=== PATIENT | female | born 1990 | race African-American/Black ===

== ENCOUNTER 2017-10-25 14:42 | Observation (INO) ==
[2017-10-25] MEDS ORDERED: MORPHINE 2 MG/1 ML SYRINGE IM STA (15:41)
[2017-10-25] MEDS ORDERED: SODIUM CHLORIDE 0.9% 1,000 ML IV STA (15:42)
[2017-10-25] MEDS ORDERED: MORPHINE 2 MG/1 ML SYRINGE ONE (15:45)
[2017-10-25 15:50] LABS: Basophils # 0.1 10*3/uL (0.0-0.2); Basophils % 0.6 % (0.0-0.8); Eosinophils # 0.2 10*3/uL (0.0-0.87); Eosinophils % 1.4 % (0.00-10.9); Hematocrit 36.2 VOL% (35.7-47.0); Hemoglobin 11.2 GM/DL (12.0-16.0); Immature Granulocytes % 0.3 %; Immature Granulocytes Absolute 0.04 #; Lymphocytes % 52.8 % (21.3-54.2); Mean Corpuscular HGB Conc 30.9 GM/DL (32-36); Mean Corpuscular Hemoglobin 27 PG (27-34); Mean Corpuscular Volume 87.4 FL (87-102); Mean Platelet Volume 9.6 FL (9.6-12.0); Monocytes # 0.7 10*3/uL (0.11-0.8); Monocytes % 5.4 % (1.7-12.7); Neutrophils # 5.2 10*3/uL (1.4-7.4); Neutrophils % 39.5 % (38.7-73.9); Platelet Count 525 T/CUMM (130-400); Red Blood Count 4.14 MC/CUMM (3.8-5.5); Red Cell Distribution Width 16.2 % (9.3-17.3); White Blood Count 13.2 T/CUMM (4-12)
[2017-10-25 15:58] LABS: Apearance,Urine CLOUDY (Clear); Bilirubin,Urine Negative (Negative); Blood, Urine Negative (Negative); Glucose,Urine (UA) Negative (Negative); Ketones,Urine Negative (Negative); Mucus,Urine Few /LPF (Occasional); Nitrite,Urine Negative (Negative); Protein,Urine 30 MG/DL; RBC,Urine 7 /HPF (0-4); Squamous Epithelial Cell,Urine Occasional /HPF (0-10); Urine Color Yellow (Yellow); WBC,Urine 2 /HPF (0-6)
[2017-10-25 16:02] LABS: Albumin 3.1 G/DL (3.4-5.0); Bilirubin,Total 0.4 MG/DL (0.2-1.0); Calcium 8.5 MG/DL (8.5-10.1); Osmolality,Calculated 277.4 MOS/KG (273-304); Potassium 3.5 MMOL/L (3.5-5.1); Total Protein 7.5 G/DL (6.4-8.3)
[2017-10-25] MEDS ORDERED: diphenhydrAMINE 50 MG/1 ML VIAL IV STA (16:10)
[2017-10-25] MEDS ORDERED: methylPREDNISolone SOD SUC 125 MG/2 ML VIAL IV STA (16:10)
[2017-10-25] MEDS ORDERED: diphenhydrAMINE 50 MG/1 ML VIAL ONE (16:11)
[2017-10-25] MEDS ORDERED: methylPREDNISolone SOD SUC 125 MG/2 ML VIAL ONE (16:12)
[2017-10-25] MEDS ORDERED: ONDANSETRON 4 MG/2 ML VIAL IV PRN (17:31)
[2017-10-25] MEDS ORDERED: MORPHINE 2 MG/1 ML SYRINGE IV PRN (17:31)
[2017-10-25] MEDS ORDERED: ALBUTEROL 2.5 MG/3 ML NEB RESP TX PRN (17:36)
[2017-10-25] MEDS ORDERED: cefTRIAXone 1,000 MG in SODIUM CHLORIDE 0.9% 100 ML IV STA (17:54)
[2017-10-25] MEDS ORDERED: cefTRIAXone 1,000 MG VIAL ONE (17:58)
[2017-10-25] MEDS ORDERED: SODIUM CHLORIDE 0.9% 100 ML IV ONE (18:00)
[2017-10-25] MEDS: ALBUTEROL/IPRATROPIUM 3 ML NEB RESP TX SCH (19:02)
[2017-10-25] MEDS: AZITHROMYCIN INJ 500 MG in SODIUM CHLORIDE 0.9% 250 ML IV SCH (21:52)
[2017-10-25] MEDS: SODIUM CHLORIDE 0.9% 1,000 ML IV SCH (21:52)
[2017-10-26] MEDS: ALBUTEROL/IPRATROPIUM 3 ML NEB RESP TX SCH ×4 (01:15→19:24)
[2017-10-26] MEDS: methylPREDNISolone SOD SUC 40 MG/1 ML VIAL IV SCH ×2 (03:55→16:26)
[2017-10-26 06:32] LABS: Basophils % 0.2 % (0.0-0.8); Hematocrit 37.3 VOL% (35.7-47.0); Hemoglobin 11.7 GM/DL (12.0-16.0); Immature Granulocytes % 0.5 %; Immature Granulocytes Absolute 0.07 #; Lymphocytes # 1.7 10*3/uL (1.4-4.0); Mean Corpuscular HGB Conc 31.4 GM/DL (32-36); Mean Corpuscular Hemoglobin 27 PG (27-34); Mean Corpuscular Volume 85.7 FL (87-102); Mean Platelet Volume 9.6 FL (9.6-12.0); Monocytes # 0.2 10*3/uL (0.11-0.8); Monocytes % 1.1 % (1.7-12.7); Neutrophils # 11.3 10*3/uL (1.4-7.4); Neutrophils % 85.2 % (38.7-73.9); Platelet Count 532 T/CUMM (130-400); Red Blood Count 4.35 MC/CUMM (3.8-5.5); Red Cell Distribution Width 15.4 % (9.3-17.3); White Blood Count 13.3 T/CUMM (4-12)
[2017-10-26] MEDS: SODIUM CHLORIDE 0.9% 1,000 ML IV SCH ×3 (07:30→17:45)
[2017-10-26 07:50] LABS: Hypochromasia 1+; Lymphocytes 13 % (20-55); Microcytosis 1+; Segmented Neutrophils 86 % (50-85); Total Cells Counted 100
[2017-10-26 07:51] LABS: Platelet Estimate Increased
[2017-10-26] MEDS ORDERED: cefTRIAXone 1,000 MG in SYRINGE 1 EACH IV SCH (18:00)
[2017-10-26] MEDS: AZITHROMYCIN INJ 500 MG in SODIUM CHLORIDE 0.9% 250 ML IV SCH (22:05)
[2017-10-27] MEDS: ALBUTEROL/IPRATROPIUM 3 ML NEB RESP TX SCH ×2 (00:30→08:21)
[2017-10-27] MEDS: SODIUM CHLORIDE 0.9% 1,000 ML IV SCH ×2 (03:26→09:38)
[2017-10-27] MEDS: methylPREDNISolone SOD SUC 40 MG/1 ML VIAL IV SCH (03:26)
[2017-10-27 11:26] VITALS: BP 122/60
== END 2017-10-27 11:46 | disposition home or self-care (01) ==
LOC: N.ED 14:42 → N.EDINP 14:42 → N.5E 19:07
PROVIDERS: ADMIT Hospitalist; ATTEND Hospitalist

== ENCOUNTER 2019-08-12 06:39 | Inpatient (IN) ==
[2019-08-12] MEDS ORDERED: ONDANSETRON 4 MG/2 ML VIAL IV PRN ×2 (07:44→11:13)
[2019-08-12] MEDS ORDERED: CITRIC ACID/SODIUM CITRATE 30 ML UDCUP PO ONE (07:44)
[2019-08-12] MEDS ORDERED: FAMOTIDINE 20 MG/2 ML VIAL IV ONE (07:44)
[2019-08-12] MEDS ORDERED: ceFAZolin 3,000 MG in SYRINGE 1 EACH IV ONE (07:44)
[2019-08-12] MEDS ORDERED: LACTATED RINGERS 1,000 ML IV SCH ×2 (08:00→11:30)
[2019-08-12 08:06] LABS: Basophils % 0.4 % (0.0-0.8); Eosinophils # 0.1 10*3/uL (0.0-0.87); Eosinophils % 1.8 % (0.00-10.9); Hematocrit 39.8 VOL% (35.7-47.0); Hemoglobin 12.3 GM/DL (12.0-16.0); Immature Granulocytes % 0.3 %; Immature Granulocytes Absolute 0.02 #; Lymphocytes # 2.3 10*3/uL (1.4-4.0); Lymphocytes % 29.2 % (21.3-54.2); Mean Corpuscular HGB Conc 30.9 GM/DL (32-36); Mean Corpuscular Volume 81.9 FL (87-102); Mean Platelet Volume 10.6 FL (9.6-12.0); Monocytes % 5.9 % (1.7-12.7); Neutrophils % 62.4 % (38.7-73.9); Platelet Count 417 T/CUMM (130-400); Red Blood Count 4.86 MC/CUMM (3.8-5.5); Red Cell Distribution Width 17.8 % (9.3-17.3); White Blood Count 7.9 T/CUMM (4-12)
[2019-08-12] MEDS ORDERED: OXYTOCIN 10 UNIT/ML VIAL IM ONE (08:23)
[2019-08-12 08:35] LABS: Albumin 2.5 G/DL (3.4-5.0); Bilirubin,Total 0.5 MG/DL (0.2-1.0); Osmolality,Calculated 277.3 MOS/KG (273-304); Total Protein 7.7 G/DL (6.4-8.3)
[2019-08-12] MEDS ORDERED: OXYTOCIN/LR 20 UNIT/1,000 ML BAG IV ONE ×3 (08:43→13:49)
[2019-08-12] MEDS ORDERED: miSOPROStoL 200 MCG TABLET ONE (08:43)
[2019-08-12] MEDS ORDERED: METHYLERGONOVINE 0.2 MG/1 ML AMP ONE (08:43)
[2019-08-12] MEDS ORDERED: CARBOPROST TROMETHAMINE 250 MCG/ML AMP IM ONE (08:44)
[2019-08-12] MEDS ORDERED: OXYTOCIN/LR 30 UNIT/1,000 ML BAG IV ONE (08:45)
[2019-08-12] MEDS ORDERED: BUPIVACAINE 0.25% 50 ML VIAL ONE (10:11)
[2019-08-12] MEDS ORDERED: ROPIVACAINE 0.5% 30 ML VIAL ONE (10:12)
[2019-08-12 10:14] LABS: Cord Arterial Blood HCO3 21.5 MMOL/L
[2019-08-12 10:16] LABS: Cord Venous Blood HCO3 18.7 MMOL/L; Cord Venous Blood PCO2 40.2 MMHG; Cord Venous Blood PO2 31.5
[2019-08-12 10:36] LABS: Apearance,Urine CLEAR (Clear); Bilirubin,Urine Negative (Negative); Blood, Urine Negative (Negative); Glucose,Urine (UA) Negative (Negative); Ketones,Urine Negative (Negative); Mucus,Urine Occasional /LPF (Occasional); Nitrite,Urine Negative (Negative); Protein,Urine Negative; RBC,Urine 1 /HPF (0-4); Squamous Epithelial Cell,Urine Occasional /HPF (0-10); Urine Color Yellow (Yellow); Urine Specific Gravity 1.029 (1.001-1.035); Urine Urobilinogen < 2.0 EU/DL (0.2-1.0); WBC,Urine 1 /HPF (0-6)
[2019-08-12] MEDS ORDERED: BUPIVACAINE SPINAL 0.75% 2 ML AMP SPINAL ONE (10:47)
[2019-08-12] MEDS ORDERED: PHENYLEPHRINE 1 MG/10 ML SYRINGE IV ONE (10:47)
[2019-08-12] MEDS ORDERED: MORPHINE 10 MG/10 ML VIAL ONE (10:47)
[2019-08-12] MEDS ORDERED: MIDAZOLAM 2 MG/2 ML VIAL ONE (10:48)
[2019-08-12] MEDS ORDERED: RHO(D) IMMUNE GLOBULIN 300 MCG SYRINGE IM ONE (11:13)
[2019-08-12] MEDS ORDERED: SIMETHICONE CHEW 80 MG TABLET PO PRN (11:13)
[2019-08-12] MEDS ORDERED: ACETAMINOPHEN 325 MG TABLET PO PRN (11:13)
[2019-08-12] MEDS: ceFAZolin 1,000 MG in SYRINGE 1 EACH IV SCH ×2 (16:33→23:09)
[2019-08-12] MEDS ORDERED: diphenhydrAMINE 50 MG/1 ML VIAL ONE (16:56)
[2019-08-12] MEDS: diphenhydrAMINE 50 MG/1 ML VIAL IV PRN ×2 (16:58→23:31)
[2019-08-12 17:53] LABS: Basophils % 0.2 % (0.0-0.8); Hematocrit 37.6 VOL% (35.7-47.0); Hemoglobin 11.7 GM/DL (12.0-16.0); Immature Granulocytes % 0.5 %; Immature Granulocytes Absolute 0.07 #; Lymphocytes # 1.1 10*3/uL (1.4-4.0); Lymphocytes % 7.9 % (21.3-54.2); Mean Corpuscular HGB Conc 31.1 GM/DL (32-36); Mean Corpuscular Volume 82.1 FL (87-102); Mean Platelet Volume 10.3 FL (9.6-12.0); Monocytes % 2.9 % (1.7-12.7); Neutrophils % 88.5 % (38.7-73.9); Platelet Count 383 T/CUMM (130-400); Red Blood Count 4.58 MC/CUMM (3.8-5.5); Red Cell Distribution Width 17.5 % (9.3-17.3); White Blood Count 13.5 T/CUMM (4-12)
[2019-08-13] MEDS: DOCUSATE SODIUM 100 MG CAPSULE PO SCH ×3 (00:11→21:52)
[2019-08-13 06:16] LABS: Basophils % 0.4 % (0.0-0.8); Eosinophils % 0.3 % (0.00-10.9); Hematocrit 31.8 VOL% (35.7-47.0); Hemoglobin 9.9 GM/DL (12.0-16.0); Immature Granulocytes % 0.4 %; Immature Granulocytes Absolute 0.04 #; Lymphocytes # 2.5 10*3/uL (1.4-4.0); Lymphocytes % 23.9 % (21.3-54.2); Mean Corpuscular HGB Conc 31.1 GM/DL (32-36); Mean Corpuscular Volume 82.4 FL (87-102); Mean Platelet Volume 10.2 FL (9.6-12.0); Monocytes % 6.3 % (1.7-12.7); Neutrophils % 68.7 % (38.7-73.9); Platelet Count 308 T/CUMM (130-400); Red Blood Count 3.86 MC/CUMM (3.8-5.5); Red Cell Distribution Width 17.5 % (9.3-17.3); White Blood Count 10.4 T/CUMM (4-12)
[2019-08-13] MEDS: MULTIVITAMIN (PRENATAL) TABLET PO SCH (08:55)
[2019-08-13] MEDS ORDERED: diphenhydrAMINE CAP 25 MG CAPSULE PO PRN (12:56)
[2019-08-13] MEDS ORDERED: diphenhydrAMINE CAP 25 MG CAPSULE ONE (12:58)
[2019-08-13] MEDS: IBUPROFEN 800 MG TABLET PO PRN (16:17)
[2019-08-13] MEDS: MAGNESIUM HYDROXIDE SUSP 30 ML UDCUP PO PRN ×2 (17:30→21:51)
[2019-08-13] MEDS ORDERED: BISACODYL 10 MG SUPP RECTAL PRN (20:13)
[2019-08-14] MEDS: IBUPROFEN 800 MG TABLET PO PRN (05:00)
[2019-08-14] MEDS: DOCUSATE SODIUM 100 MG CAPSULE PO SCH (10:08)
[2019-08-14] MEDS: MULTIVITAMIN (PRENATAL) TABLET PO SCH (10:08)
[2019-08-14 12:19] VITALS: BP 143/77
[2019-08-14] MEDS ORDERED: MEASLES/MUMPS/RUBELLA VACCINE 0.5 ML VIAL SUBCUT ONE (13:19)
[2019-08-14] MEDS ORDERED: DIPH/TET/ACEL PERT BOOSTER VACCINE 0.5 ML VIAL IM ONE (13:20)
[2019-08-14] MEDS ORDERED: INFLUENZA VIRUS VACCINE 0.5 ML SYRINGE IM ONE (13:20)
== END 2019-08-14 15:00 | disposition home or self-care (01) | DRG 540 ==
LOC: N.LD 06:39 → N.OB 15:20
PROVIDERS: ADMIT Obstetrics & Gynecology; ATTEND Obstetrics & Gynecology
PROC: LDCSECT (ICD-10-PCS; 2019-08-12 08:15)

== ENCOUNTER 2021-01-27 03:38 | Inpatient (IN) ==
[2021-01-27 02:06] LABS: Bilirubin,Urine Negative (Negative); Blood, Urine Negative (Negative); Glucose,Urine (UA) Negative (Negative); Ketones,Urine Negative (Negative); Nitrite,Urine Negative (Negative); Protein,Urine Negative; RBC,Urine <1 /HPF (0-4); Urine Appearance CLEAR (Clear); Urine Color Colorless (Yellow); Urine Specific Gravity 1.003 (1.001-1.035); Urine Urobilinogen < 2.0 EU/DL (0.2-1.0)
[~2021-01-27 03:38] MED LIST: ALBUTEROL 1.25 MG/3 ML NEB RESP TX STA; CITRIC ACID/SODIUM CITRATE 30 ML UDCUP PO ONE; FAMOTIDINE 20 MG/2 ML VIAL IV ONE; ceFAZolin 3,000 MG in SYRINGE 1 EACH IV ONE
[2021-01-27] MEDS ORDERED: LACTATED RINGERS 1,000 ML IV SCH ×2 (04:00→09:30)
[2021-01-27 04:10] LABS: Basophils % 0.5 % (0.0-0.8); Eosinophils # 0.2 10*3/uL (0.0-0.87); Eosinophils % 3.3 % (0.00-10.9); Hematocrit 36.2 VOL% (35.7-47.0); Hemoglobin 11.6 GM/DL (12.0-16.0); Immature Granulocytes % 0.3 %; Immature Granulocytes Absolute 0.02 #; Lymphocytes # 2.6 10*3/uL (1.4-4.0); Lymphocytes % 35.8 % (21.3-54.2); Monocytes % 5.8 % (1.7-12.7); Neutrophils % 54.3 % (38.7-73.9); Platelet Count 361 T/CUMM (130-400); Red Blood Count 4.47 MC/CUMM (3.8-5.5); Red Cell Distribution Width 16.2 % (9.3-17.3); White Blood Count 7.4 T/CUMM (4-12)
[2021-01-27 04:28] LABS: Alanine Aminotransferase 14 U/L (13-56); Albumin 2.6 G/DL (3.4-5.0); Alkaline Phosphatase 148 U/L (45-117); Aspartate Amino Transferase 8 U/L (0-37); Bilirubin,Total < 0.39 MG/DL (0.2-1.0); Blood Urea Nitrogen 8 MG/DL (7-18); Calcium 8.8 MG/DL (8.5-10.1); Carbon Dioxide 21 MMOL/L (21-32); Estimated Glom Filtration Rate 170 ML/MIN; Glucose 80 MG/DL (74-106); Osmolality,Calculated 269.8 MOS/KG (273-304); Sodium 137 MMOL/L (136-145); Total Protein 7.6 G/DL (6.4-8.2)
[2021-01-27 04:29] LABS: Eosinophils 1 % (0-10); Lymphocytes 40 % (20-55); Platelet Estimate Normal; Segmented Neutrophils 52 % (50-85); Total Cells Counted 100
[2021-01-27 05:01] LABS: Barbiturates Screen,Urine Negative (Negative); Benzodiazepines Screen,Urine Negative (Negative); Cannabinoid Screen,Urine Negative (Negative); Opiate Screen,Urine Negative (Negative); Phencyclidine Screen,Urine Negative (Negative)
[2021-01-27] MEDS ORDERED: miSOPROStoL 200 MCG TABLET ONE (07:03)
[2021-01-27] MEDS ORDERED: TRANEXAMIC ACID 1,000 MG/10 ML VIAL ONE (07:03)
[2021-01-27] MEDS ORDERED: CARBOPROST TROMETHAMINE 250 MCG/ML AMP IM ONE (07:04)
[2021-01-27] MEDS ORDERED: OXYTOCIN/LR 20 UNIT/1,000 ML BAG IV ONE ×3 (07:04→09:20)
[2021-01-27] MEDS ORDERED: METHYLERGONOVINE 0.2 MG/1 ML AMP ONE (07:04)
[2021-01-27] MEDS ORDERED: SODIUM CHLORIDE 0.9% 0 ML IV ONE (07:05)
[2021-01-27] MEDS ORDERED: LACTATED RINGERS 1,000 ML IV ONE (07:31)
[2021-01-27] MEDS ORDERED: BUPIVACAINE SPINAL 0.75% 2 ML AMP SPINAL ONE (07:34)
[2021-01-27] MEDS ORDERED: ePHEDrine 50 MG/ML VIAL ONE (07:56)
[2021-01-27] MEDS ORDERED: PHENYLEPHRINE 1 MG/10 ML SYRINGE IV ONE (07:56)
[2021-01-27] MEDS ORDERED: DEXAMETHASONE 4 MG/1 ML VIAL ONE (08:07)
[2021-01-27] MEDS ORDERED: KETOROLAC 30 MG/1 ML VIAL ONE (08:07)
[2021-01-27] MEDS ORDERED: ACETAMINOPHEN INJ 1,000 MG/100 ML VIAL IV ONE (08:07)
[2021-01-27] MEDS ORDERED: ONDANSETRON 4 MG/2 ML VIAL ONE (08:19)
[2021-01-27] MEDS ORDERED: fentaNYL 100 MCG/2 ML VIAL ONE (08:20)
[2021-01-27 08:44] LABS: Cord Arterial Blood HCO3 17.7 MMOL/L
[2021-01-27 08:46] LABS: Cord Venous Blood HCO3 21.5 MMOL/L; Cord Venous Blood PCO2 46.9 MMHG
[2021-01-27] MEDS ORDERED: ACETAMINOPHEN 325 MG TABLET PO PRN (09:20)
[2021-01-27] MEDS ORDERED: ONDANSETRON 4 MG/2 ML VIAL IV PRN (09:20)
[2021-01-27] MEDS ORDERED: RHO(D) IMMUNE GLOBULIN 300 MCG SYRINGE IM ONE (09:20)
[2021-01-27 10:28] LABS: Bilirubin,Urine Negative (Negative); Blood, Urine Negative (Negative); Glucose,Urine (UA) Negative (Negative); Ketones,Urine Negative (Negative); Mucus,Urine Occasional /LPF (Occasional); Nitrite,Urine Negative (Negative); Protein,Urine Negative; RBC,Urine <1 /HPF (0-4); Squamous Epithelial Cell,Urine Occasional /HPF (0-10); Urine Appearance CLEAR (Clear); Urine Color Straw (Yellow); Urine Specific Gravity 1.006 (1.001-1.035); Urine Urobilinogen < 2.0 EU/DL (0.2-1.0)
[2021-01-27] MEDS ORDERED: ACETAMINOPHEN 500 MG TABLET PO PRN (15:00)
[2021-01-27] MEDS ORDERED: KETOROLAC 30 MG/1 ML VIAL IV PRN (15:00)
[2021-01-27] MEDS: MULTIVITAMIN (PRENATAL) TABLET PO SCH (15:59)
[2021-01-27 16:09] LABS: Basophils % 0.1 % (0.0-0.8); Eosinophils % 0.1 % (0.00-10.9); Hematocrit 33.5 VOL% (35.7-47.0); Hemoglobin 10.4 GM/DL (12.0-16.0); Immature Granulocytes % 0.4 %; Immature Granulocytes Absolute 0.05 #; Lymphocytes # 0.9 10*3/uL (1.4-4.0); Lymphocytes % 6.8 % (21.3-54.2); Mean Corpuscular Volume 82.5 FL (87-102); Mean Platelet Volume 10.3 FL (9.6-12.0); Monocytes % 2.7 % (1.7-12.7); Neutrophils % 89.9 % (38.7-73.9); Platelet Count 342 T/CUMM (130-400); Red Blood Count 4.06 MC/CUMM (3.8-5.5); White Blood Count 13.6 T/CUMM (4-12)
[2021-01-27] MEDS ORDERED: ALBUTEROL 1.25 MG/3 ML NEB RESP TX PRN (19:48)
[2021-01-27] MEDS: DOCUSATE SODIUM 100 MG CAPSULE PO SCH (23:24)
[2021-01-28 06:29] LABS: Basophils % 0.2 % (0.0-0.8); Eosinophils % 0.3 % (0.00-10.9); Hematocrit 29.6 VOL% (35.7-47.0); Hemoglobin 9.3 GM/DL (12.0-16.0); Immature Granulocytes % 0.3 %; Immature Granulocytes Absolute 0.03 #; Lymphocytes # 3.2 10*3/uL (1.4-4.0); Lymphocytes % 27.6 % (21.3-54.2); Mean Corpuscular HGB Conc 31.4 GM/DL (32-36); Mean Platelet Volume 9.9 FL (9.6-12.0); Monocytes % 3.9 % (1.7-12.7); Neutrophils % 67.7 % (38.7-73.9); Platelet Count 290 T/CUMM (130-400); Red Blood Count 3.61 MC/CUMM (3.8-5.5); Red Cell Distribution Width 15.9 % (9.3-17.3); White Blood Count 11.6 T/CUMM (4-12)
[2021-01-28 06:47] LABS: Hypochromasia 1+; Lymphocytes 25 % (20-55); Microcytosis 1+; Platelet Estimate Adequate; Segmented Neutrophils 70 % (50-85); Total Cells Counted 100
[2021-01-28] MEDS: METOCLOPRAMIDE 10 MG TABLET PO SCH ×2 (09:04→15:27)
[2021-01-28] MEDS: MAGNESIUM HYDROXIDE SUSP 30 ML UDCUP PO PRN ×2 (09:04→20:38)
[2021-01-28] MEDS: FERROUS SULFATE 325 MG TABLET PO SCH (09:06)
[2021-01-28] MEDS ORDERED: FLUCONAZOLE 150 MG TABLET PO ONE (09:39)
[2021-01-28] MEDS: DOCUSATE SODIUM 100 MG CAPSULE PO SCH (20:38)
[2021-01-28] MEDS: SIMETHICONE CHEW 80 MG TABLET PO PRN (20:39)
[2021-01-28] MEDS ORDERED: BISACODYL 10 MG SUPP RECTAL PRN (22:13)
[2021-01-28] MEDS: IBUPROFEN 800 MG TABLET PO PRN (22:55)
[2021-01-29] MEDS: SIMETHICONE CHEW 80 MG TABLET PO PRN ×3 (03:28→21:42)
[2021-01-29] MEDS: MULTIVITAMIN (PRENATAL) TABLET PO SCH (08:54)
[2021-01-29] MEDS: FERROUS SULFATE 325 MG TABLET PO SCH (08:54)
[2021-01-29] MEDS: METOCLOPRAMIDE 10 MG TABLET PO SCH ×3 (08:54→16:03)
[2021-01-29] MEDS: DOCUSATE SODIUM 100 MG CAPSULE PO SCH ×2 (08:54→21:40)
[2021-01-29] MEDS: IBUPROFEN 800 MG TABLET PO PRN (14:38)
[2021-01-29] MEDS: MAGNESIUM HYDROXIDE SUSP 30 ML UDCUP PO PRN (21:40)
[2021-01-30] MEDS: METOCLOPRAMIDE 10 MG TABLET PO SCH (00:35)
[2021-01-30] MEDS: IBUPROFEN 800 MG TABLET PO PRN (04:02)
[2021-01-30 08:47] VITALS: BP 129/71
[2021-01-30] MEDS: MULTIVITAMIN (PRENATAL) TABLET PO SCH (09:39)
[2021-01-30] MEDS: DOCUSATE SODIUM 100 MG CAPSULE PO SCH (09:39)
[2021-01-30] MEDS: FERROUS SULFATE 325 MG TABLET PO SCH (09:39)
== END 2021-01-30 12:50 | disposition home or self-care (01) | DRG 540 ==
LOC: N.LD → N.OB 14:06
PROVIDERS: ADMIT Obstetrics & Gynecology; ATTEND Obstetrics & Gynecology